=== PATIENT | female | born 2000 | race Caucasian/White ===

== ENCOUNTER 2023-03-17 01:34 | Emergency (ER) | payer BC ==
[~2023-03-17] VITALS: Ht 160 cm; Wt 154.0 kg
[2023-03-17 01:48] VITALS: BP 124/85
[2023-03-17] MEDS ORDERED: NORG1TAB16 (01:56)
[2023-03-17] MEDS ORDERED: SERT-413 (01:56)
[2023-03-17] MEDS ORDERED: BUPR150T24 (01:56)
[2023-03-17] MEDS ORDERED: LAMO100T5 (01:56)
[2023-03-17] MEDS ORDERED: TETANUS,DIPTH,PERTUSS P/F (BOOSTRIX) 0.5 ML VIAL IM ONE (02:00)
[2023-03-17] MEDS ORDERED: LIDOCAINE 1% INJ 20 ML VIAL IJ ONE (02:15)
[2023-03-17] MEDS ORDERED: RX-CEPHALEXIN (KEFLEX) 250 MG CAP PPK#4 PO STA (02:24)
[2023-03-17] MEDS ORDERED: CEPH500T PO (02:28)
--- NOTE | 2023-03-17 02:28 | ED Upper Extremity ---
General Chief Complaint: Laceration Stated Complaint: STABBED THUMB W SCISSORS Nursing Triage Note: LEFT THUMB LACERATION FROM SCIZZORS WHILE TRYING TO OPEN PACKAGE. Source: patient History of Present Illness Date Seen by Provider: March 17, 2023 Time Seen by Provider: 01:55 Initial Comments PT ARRIVES VIA POV FROM HOME WITH MALE S.O. PT STATES SHE CUT HER LEFT THUMB WITH SCISSORS WHEN SHE WAS TRYING TO OPEN A PACKAGE OCCURRED AROUND 0030. NO PARESTHESIAS OR MOTOR DEFICITS NO PRIOR INJURY TO THIS THUMB PT IS RIGHT HANDED. LAST TETANUS VACCINATION IS UNKNOWN. PCP: MICHELLE Allergies and Home Medications Allergies Coded Allergies: No Known Drug Allergies (Unverified , 03/17/23) Patient Home Medication List Home Medication List Reviewed: Yes Bupropion HCl (Bupropion Xl) 150 Mg Tab.er.24h, (Reported) Entered as Reported by: ANAIS PUTNAM on 03/17/23155 Last Action: New Order Cephalexin (Cephalexin) 500 Mg Tablet, 500 MG PO QID Prescribed by: FRANCISCO SCHNEIDER on 03/17/23227 Lamotrigine (Lamotrigine) 100 Mg Tablet, (Reported) Entered as Reported by: ANAIS PUTNAM on 03/17/23155 Last Action: New Order Norgestrel-Ethinyl Estradiol (Cryselle-28 Tablet) 0.3 Mg-30 Mcg Tablet, (Reported) Entered as Reported by: ANAIS PUTNAM on 03/17/23155 Last Action: New Order Sertraline HCl (Sertraline HCl) 50 Mg Tablet, (Reported) Entered as Reported by: ANAIS PUTNAM on 03/17/23155 Last Action: New Order Review of Systems Constitutional: no symptoms reported Musculoskeletal: see HPI Skin: see HPI Psychiatric/Neurological: No Symptoms Reported Past Bezgpgs-Zgcrpv-Tplbvi Hx Patient Social History Tobacco Use?: No Substance use?: Yes Substance type: Marijuana Alcohol Use?: No Pt feels they are or have been: No Immunizations Up To Date Tetanus Booster (TDap): Unknown First/Initial COVID19 Vaccinat: X3 Past Medical History Surgery/Hospitalization HX: ANXIETY/DEPRESSION, GERD, DENTAL EXTRACTION, TONGUE SX. Surgeries: Yes (DENTAL EXTRACTIONS; TONGUE SURGERY) Respiratory: No Cardiac: No Neurological: No Reproductive Disorders: Yes Female Reproductive Disorders: Polycystic Ovarian Dis Genitourinary: No Gastrointestinal: No Musculoskeletal: No Endocrine: Yes (MORBID OBESITY) HEENT: No Cancer: No Psychosocial: Yes Anxiety, Depression Integumentary: No Blood Disorders: No Physical Exam Vital Signs Vital Signs - First Documented 03/17/23 01:48 Temp 36.3 Pulse 96 Resp 16 B/P (MAP) 124/85 (98) Pulse Ox 97 O2 Delivery Room Air Capillary Refill : Less Than 3 Seconds Height, Weight, BMI Height: '" Weight: lbs. oz. kg; 60.00 BMI Method: General Appearance: WD/WN, no apparent distress, obese Hand: Left (LEFT THUMB WITH 2.5 CM LACERATION TO LATERAL ASPECT. BLEEDING CONTROLLED. MOTOR/SENSORY/VASCULAR INTACT. ) Neurologic/Tendon: normal sensation, normal motor functions, normal tendon functions Neurologic/Psychiatric: no motor/sensory deficits, alert, normal mood/affect, oriented x 3 Skin: normal color, warm/dry, other ( ABOVE) Procedures/Interventions Other Wound Location LEFT THUMB Wound Length (cm): 2.5 Wound's Depth, Shape: linear, sub Q Betadine Prep?: No (BETASE[T) Anesthesia: 1% Lidocaine Suture: Ethlion Suture Size: 3-0 Number of Sutures: 4 Layer Closure?: 1 Sterile Dressing Applied?: Yes Progress PT TOLERATED WELL Progress/Results/Core Measures Results/Orders My Orders Orders - FRANCISCO SCHNEIDER DO Dipht,Pertuss(Acell),Tet Adult (Boostrix (03/17/23 02:00) Lidocaine 1% Inj 20 Ml (Xylocaine 1% Inj (03/17/23 02:15) Rx-Cephalexin Capsule (Rx-Keflex Capsule (03/17/23 02:24) Medications Given in ED Current Medications Medications Dose Ordered Sig/Erendira Route Start Time Stop Time Status Last Admin Dose Admin Diphtheria/ Tetanus/Acell Pertussis 0.5 ml ONCE ONCE IM 03/17/23 02:00 03/17/23 02:01 DC 03/17/23 02:27 0.5 ML Lidocaine HCl 20 ml ONCE ONCE IJ 03/17/23 02:15 03/17/23 02:16 DC 03/17/23 02:27 20 ML Vital Signs/I&O 03/17/23 01:48 Temp 36.3 Pulse 96 Resp 16 B/P (MAP) 124/85 (98) Pulse Ox 97 O2 Delivery Room Air Blood Pressure Mean: 98 Progress Progress Note : Progress Note DPT VACCINE GIVEN PT INSTRUCTED ON WOUND CARE, ANTICIPATED COURSE, MEDICATIONS, SYMPTOMATIC TREATMENT, NEED FOR FOLLOW UP AND RETURN PRECAUTIONS PT IS A ACADEMIC DIRECTOR. Departure Impression Primary Impression: Laceration of left thumb Additional Impression: Bflxfcaabe-cylktxtcr-mdpptyl (DPT) vaccination administered at current visit Disposition: 01 HOME, SELF-CARE Condition: Stable Departure-Patient Inst. Decision time for Depature: 02:25 Referrals: MARGI MARIE APRN (PCP) Primary Care Physician Patient Instructions: Laceration Repair With Stitches ED, Diphtheria and Tetanus Toxoids, and Acellular Pertussis Vaccine Add. Discharge Instructions: LEAVE DRESSING IN PLACE FOR 24 HOURS AFTER 24 HOURS, YOU MAY CLEAN THE WOUND TWICE A DAY WITH ANTIBACTERIAL SOAP AND WATER ON A Q-TIP, OTHERWISE KEEP CLEAN AND DRY YOU WILL NEED TO KEEP THE AREA COVERED WHEN BATHING, AND WHILE AT WORK WHEN AT HOME, AND IN A CLEAN ENVIRONMENT, YOU MAY REMOVE DRESSING AND LET AIR GET TO THE AREA SUTURES OUT IN 10 DAYS--RETURN TO ER FOR REMOVAL TYLENOL AND MOTRIN NEEDED FOR APIN All discharge instructions reviewed with patient and/or family. Voiced understanding. Scripts Cephalexin (Cephalexin) 500 Mg Tablet 500 MG PO QID, #20 TAB 0 Refills Prov: FRANCISCO SCHNEIDER DO 03/17/23 FRANCISCO SCHNEIDER DO March 17, 2023 02:28
== END 2023-03-17 02:42 | disposition home or self-care (01) ==
LOC: ER 01:43
DX: S61.012A Laceration without foreign body of left thumb without damage to nail, initial encounter (principal); E66.01 Morbid (severe) obesity due to excess calories; Z68.44 Body mass index [BMI] 60.0-69.9, adult; Z23 Encounter for immunization; W27.2XXA Contact with scissors, initial encounter
CPT/HCPCS: 12001; 90715

== ENCOUNTER 2023-03-27 19:08 | Emergency (ER) | payer BC ==
[~2023-03-27] VITALS: Ht 160 cm; Wt 154.0 kg
[~2023-03-27 19:08] MED LIST: BUPR150T24; CEPH500T PO; LAMO100T5; NORG1TAB16; SERT-413
[2023-03-27 19:31] VITALS: BP 123/79
== END 2023-03-27 19:33 | disposition home or self-care (01) ==
LOC: EDUNIT# 19:08 → ER 19:09
DX: Z48.02 Encounter for removal of sutures (principal)